=== PATIENT | female | born 1955 | race Two or more races ===

== ENCOUNTER 2025-02-09 21:13 | Emergency (ER) | payer OTHER ==
[~2025-02-09] VITALS: Ht 170.2 cm; Wt 100.0 kg
[2025-02-09] MEDS ORDERED: ACET500T58 PO (22:50)
[2025-02-09] MEDS ORDERED: CYCL-837 PO (22:50)
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
--- NOTE | 2025-02-09 23:55 | DVH ---
CT HEAD WITHOUT CONTRAST INDICATION: headache EXAM DATE: 02/09/2025 11:20 PM COMPARISON: None RADIATION DOSE: CTDIvol: 21.7 mGy, DLP: 1529.03 mGy*cm PROCEDURE: CT scans of the head were obtained from the vertex to the skull base. Sagittal and coronal reconstructions were provided. All CT scans at this medical facility are performed using dose modulation techniques as appropriate t o a performed exam including the following: Automated exposure control was utilized; adjustment of th e MA and/or KV according to patient size; and use of iterative reconstruction technique. FINDINGS: No acute territorial infarct, intracranial hemorrhage, or mass effect. There are global involutional changes with compensatory prominence of the ventricles and sulci. Patchy periventricular and subcorti rossy white matter hypoattenuation is nonspecific but may be related to small vessel ischemic disease. The orbits are normal. The paranasal sinuses and mastoid air cells are clear. The osseous structures are unremarkable. IMPRESSION: 1. No acute territorial infarct, intracranial hemorrhage, or mass effect. If clinical symptoms persis t, MRI may be beneficial in further evaluation. 2. Age-related involutional changes. Chronic microvascular changes.
--- NOTE | 2025-02-09 23:57 | DVH ---
CT OF THE CERVICAL SPINE WITHOUT CONTRAST HISTORY: neck pain COMPARISON: None TECHNIQUE: Helical images through the cervical spine were obtained without contrast. Sagittal and cor onal reformats were obtained. One or more of the following radiation dose reduction techniques were u sed for this examination: automated exposure control, adjustment of the mA and/or kV according to pat ient size, use of iterative reconstruction technique. Dose: CTDI vol: 21.7, DLP: 5029.03 mGy.cm FINDINGS: No acute displaced fracture. There are degenerative changes of the cervical spine characterized by e ndplate osteophytosis and intervertebral disc space narrowing. A disc osteophyte complex at C5-6 effa jama the thecal sac and contributes to at least mild spinal stenosis. There is grade 1 anterolisthesi s of C3 on C4. There is mild retrolisthesis of C5 on C6. Degenerative uncovertebral and facet hypert rophy contribute to mild multilevel neural foraminal narrowing. Paraspinal soft tissues are unremark able. IMPRESSION: 1. No acute displaced fracture. 2. Degenerative changes of the cervical spine as detailed.
--- NOTE | 2025-02-10 00:02 | DVH ---
EXAM: XY R RIB XRAY HISTORY: right rib pain COMPARISON: None TECHNIQUE: Frontal view of the chest and multiple views of the right ribs were performed. FINDINGS/IMPRESSION: The lungs are clear. The cardiomediastinal silhouette is unremarkable. No pleural effusion or pneumo thorax. No acute displaced rib fracture.
[2025-02-10 00:53] VITALS: BP 130/80; PULSE 77; RESP 16; TEMP 99.7; O2SAT 100
[2025-02-10] MEDS: HYDROcodone-ACET 5/325MG TAB PO ONE (00:57)
[2025-02-10] MEDS: ONDANSETRON ODT 4 MG TAB PO ONE (00:57)
== END 2025-02-10 00:58 | disposition home or self-care (01) ==
LOC: EDBD 21:13 → ER 21:13
DX: S16.1XXA Strain of muscle, fascia and tendon at neck level, initial encounter (principal); S20.211A Contusion of right front wall of thorax, initial encounter; R51.9 Headache, unspecified; M79.7 Fibromyalgia; I10 Essential (primary) hypertension; Z90.710 Acquired absence of both cervix and uterus; Z90.49 Acquired absence of other specified parts of digestive tract; Z90.12 Acquired absence of left breast and nipple; Z85.3 Personal history of malignant neoplasm of breast; Z79.899 Other long term (current) drug therapy; V89.2XXA Person injured in unspecified motor-vehicle accident, traffic, initial encounter; Y93.89 Activity, other specified; Y92.488 Other paved roadways as the place of occurrence of the external cause; Y99.8 Other external cause status
CPT/HCPCS: 70450; 71101; 72125; 99284; Q0162

== ENCOUNTER 2025-04-19 17:01 | Emergency (ER) | payer OTHER ==
[~2025-04-19] VITALS: Ht 160 cm; Wt 86.9 kg
[~2025-04-19 17:01] MED LIST: ACET500T58 PO; CYCL-837 PO
[2025-04-19 18:53] LABS: Hematocrit 42.6 % (36.0-46.0); Hemoglobin 14.1 g/dL (12.2-16.2); Mean Corpuscular Hemoglobin 30.1 pg (28.0-32.0); Mean Corpuscular Volume 91.2 fL (80.0-100.0); Nucleated Red Blood Cells % 0.0 %
[2025-04-19 19:09] LABS: Alanine Aminotransferase 29 U/L (7-40); Albumin 4.5 g/dL (3.2-4.8); Anion Gap 11 (5-15); BUN/Creatinine Ratio 12.8 (10.0-20.0); Blood Urea Nitrogen 19 mg/dL (9-23); Calcium 9.6 mg/dL (8.7-10.4); Carbon Dioxide 24 mmol/L (20-31); Chloride 103 mmol/L (98-107); Potassium 4.4 mmol/L (3.5-5.1); Sodium 138 mmol/L (136-145); Total Protein 7.7 g/dL (5.7-8.2)
[2025-04-19 19:10] LABS: Bilirubin, Total 0.6 mg/dL (0.2-1.0)
[2025-04-19 19:11] LABS: Alkaline Phosphatase 120 U/L (46-116); Glucose 148 mg/dL (74-106)
[2025-04-19 19:13] LABS: Lactic Acid w/Reflex 2.5 mmol/L (0.4-2.0)
[2025-04-19 19:22] LABS: Urine Budding Yeast OCCASIONAL /hpf (None Seen); Urine Protein, UAD 1+ (Negative)
--- NOTE | 2025-04-19 19:38 | ED.PDOC ---
General HPI Comments 70 y.o female with PMHx of breast cancer on remission, RA, OA, fibromyalgia and kidney stones, presents to the ED for a chief complaint of left flank pain that has been ongoing the past several days. Patient reports she was seen at the [facility] last night and discharged this morning with pain medication. Prior to this visit, patient was seen for same complaint, had a CT scan done revealing a 7cm kidney stone and was scheduled for a lithotripsy procedure on 05/18/25. Patient states pain worsened this morning, states she has tried taking her pain medications such as Percocet and tramadol at home but causes her to be nauseous and does not alleviate the pain. She also mentions her urine has a tint of blood today with no clots noted. She denies fever, chills, vomiting. Chief Complaint: Abdominal Pain Time Seen by MD: 19:26 Primary Care Provider: UNKNOWN Reviewed notes: Nurses Notes, Medications, Allergies Allergies: Coded Allergies: Cefazolin (Verified Allergy, Unknown, 04/19/25) Zolpidem (Verified Allergy, Unknown, 04/19/25) Home Meds Active Scripts Acetaminophen (Acetaminophen) 500 Mg Tab, 500 MG PO Q4HPRN, #30 TAB 0 Refills Prov:DAVI COX 02/09/25 Cyclobenzaprine Hcl (Cyclobenzaprine Hcl) 5 Mg Tab, 1 TAB PO QHSP, #14 TAB 0 Refills Prov:DAVI COX 02/09/25 Information Source: Patient Mode of Arrival: Ambulatory Severity: Moderate Timing: Days Duration: Since onset Onset: Spontaneous Symptoms: None History of: Kidney stone Location: (L)Flank Modifying factors: None associated signs and symptoms: Nausea, Flank Pain Past Medical History PAST MEDICAL HISTORY: Cancer, HTN Past Medical History (Other): Kidney stones Surgical History: Cholecystectomy, Hysterectomy PLAN MANAGER History: No Pertinent PLAN MANAGER History Family History Family History: Unknown Social History Smoker: Non-Smoker Alcohol: Denies ETOH Use Drugs: Denies Drug Use Lives In: Home Constitutional: denies: chills, diaphoresis, fatigue, fever, malaise, sweats, weakness, others EENTM: denies: blurred vision, double vision, ear bleeding, ear discharge, ear drainage, ear pain, ear ringing, eye pain, eye redness, hearing loss, mouth pain, mouth swelling, nasal discharge, nose bleeding, nose congestion, nose pain, photophobia, tearing, throat pain, throat swelling, voice changes, others Respiratory: denies: cough, hemoptysis, orthopnea, SOB at rest, shortness of breath, SOB with excertion, stridor, wheezing, others Cardiovascular: denies: chest pain, dizzy spells, diaphoresis, Dyspnea on exertion, edema, irregular heart beat, left arm pain, lightheadedness, palpit ations, PND, syncope, others Gastrointestinal: denies: abdomen distended, abdominal pain, blood streaked b owels, constipated, diarrhea, dysphagia, difficulty swallowing, hematemesis, melena, nausea, poor appetite, poor fluid intake, rectal bleeding, rectal pain, vomiting, others Genitourinary: reports: flank pain; denies: abnormal vagina bleeding, burning, dyspareunia, dysuria, frequency, hematuria, incontinence, pain, , vagina discharge, urgency, others Neurological: denies: dizziness, fainting, headache, left sided numbness, left sided weakness, numbness, paresthesia, pre-existing deficit, right sided numbness, right sided weakness, seizure, speech problems, tingling, tremors, weakness, others Musculoskeletal: denies: back pain, gout, joint pain, joint swelling, muscle pain, muscle stiffness, neck pain, others Integumetry: denies: bruises, change in color, change in hair/nails, dryness, laceration, lesions, lumps, rash, wounds, others Allergic/Immunocompromised: denies: Difficulty Healing, Frequent Infections, Hives, Itching, others Endocrine: denies: excessive hunger, excessive sweating, excessive thirst, excessive urination, flushing, intolerance to cold, intolerance to heat, unexplained weight gain, unexplained weight loss, others Psychiatric: denies: anxiety, bipolar disorder, depression, hopeless, panic disorder, schizophrenia, sleepless, suicidal, others Physical Exam General Appearance: Moderate Distress, Obese HEENT: Other (Pupils and face symmetric. Moist mucous membranes.) Neck: Full Range of Motion, Normal Inspection Respiratory: Lungs Clear, No Accessory Muscle Use, No Respiratory Distress, Normal Breath Sounds Cardiovascular: No Edema, No JVD, Regular Rate/Rhythm Breast Exam: Deferred Gastrointestinal: Soft, Tenderness (Left flank and left lower quadrant tend erness to palpation) Genitalia: Deferred Pelvic: Deferred Rectal: Deferred Extremities: Normal inspection, Normal range of motion, Non-tender, No pedal edema Neurologic: Alert (Oriented x4), Normal Affect, Normal Mood, Other (Ambulatory) Cerebellar Function: NOT DONE Reflexes: NOT DONE Skin: Dry, Normal Color, Warm Lymphatic: NOT DONE Was a procedure done? Was a procedure done?: No Differential Diagnosis Kidney stone (Female): DJD, Musculoskeletal pain, Pancreatitis, Pyelonephritis, Renal failure, Urinary obstruction, Urolithiasis X-Ray, Labs, Meds, VS Vital Signs Date Time Temp Pulse Resp B/P (MAP) Pulse Ox O2 Delivery O2 Flow Rate FiO2 04/19/25 23:55 98 Room Air* 0 21 04/19/25 23:46 76 19 134/72 04/19/25 23:45 97.7 73 19 134/72 (92) 97 97.7 04/19/25 17:07 98.2 69 18 115/76 94 98.2 Lab Test 04/19/25 21:17 04/19/25 19:07 04/19/25 18:27 Range/Units Lactic Acid Level 1.8 2.5 *H 0.4-2.0 mmol/L Urine Color Light-orange Yellow Urine Clarity Turbid H Clear Urine pH 6.0 5.0-9.0 Urine Specific [place] 1.026 1.001-1.035 Urine Protein 1+ H Negative Urine Ketones Negative Negative Urine Blood 3+ H Negative /uL Urine Nitrite Negative Negative Urine Bilirubin Negative Negative Urine Urobilinogen Normal Negative mg/dL Urine Leukocyte Esterase Trace Negative /uL Urine RBC 4339 0 - 4 /hpf Urine Microscopic WBC 3 0-5 /HPF Urine Squamous Epithelial Cells Few <5 /hpf Urine Bacteria None seen None Seen /hpf Urine Mucus Few None Seen Urine Yeast (Budding) Occasional None Seen /hpf Urine Glucose Normal Normal mg/dL White Blood Count 10.7 4.4-10.8 10^3/uL Red Blood Count 4.67 4.0-5.20 10^6/uL Hemoglobin 14.1 12.2-16.2 g/dL Hematocrit 42.6 36.0-46.0 % Mean Corpuscular Volume 91.2 80.0-100.0 fL Mean Corpuscular Hemoglobin 30.1 28.0-32.0 pg Mean Corpuscular Hemoglobin Concent 33.0 32.0-36.0 g/dL Red Cell Distribution Width 13.8 11.8-14.3 % Platelet Count 243 140-450 10^3/uL Mean Platelet Volume 8.6 6.9-10.8 fL Neutrophils (%) (Auto) 71.8 37.0-80.0 % Lymphocytes (%) (Auto) 21.1 10.0-50.0 % Monocytes (%) (Auto) 6.4 0.0-12.0 % Eosinophils (%) (Auto) 0.3 0.0-7.0 % Basophils (%) (Auto) 0.4 0.0-2.0 % Neutrophils # (Auto) 7.7 1.6-8.6 10 ^3/uL Lymphocytes # (Auto) 2.3 0.4-5.4 10 ^3/uL Monocytes # (Auto) 0.7 0-1.3 10 ^3/uL Eosinophils # (Auto) 0 0-0.8 10 ^3/uL Basophils # (Auto) 0 0-0.2 10 ^3/uL Nucleated Red Blood Cells 0.0 % Sodium Level 138 136-145 mmol/L Potassium Level 4.4 3.5-5.1 mmol/L Chloride Level 103 98-107 mmol/L Carbon Dioxide Level 24 20-31 mmol/L Anion Gap 11 5-15 Blood Urea Nitrogen 19 9-23 mg/dL Creatinine 1.48 H 0.550-1.02 mg/dL Glomerular Filtration Rate Calc 38 >90 mL/min BUN/Creatinine Ratio 12.8 10.0-20.0 Serum Glucose 148 H 74-106 mg/dL Calcium Level 9.6 8.7-10.4 mg/dL Total Bilirubin 0.6 0.2-1.0 mg/dL Aspartate Amino Transferase (AST) 23 13-40 U/L Alanine Aminotransferase (ALT) 29 7-40 U/L Alkaline Phosphatase 120 H 46-116 U/L Total Protein 7.7 5.7-8.2 g/dL Albumin 4.5 3.2-4.8 g/dL Current Medications Medications (Trade) Dose Ordered Sig/Zayda Route Start Time Stop Time Status Last Admin Morphine Sulfate 4 mg ONCE ONCE IV 04/19/25 18:00 04/19/25 18:02 DC 04/19/25 23:46 Ondansetron HCl (Zofran) 4 mg ONCE ONCE IV 04/19/25 18:00 04/19/25 18:02 DC 04/19/25 23:47 Levofloxacin/ Dextrose 100 ml @ 100 mls/hr ONCE ONCE IV 04/19/25 19:30 04/19/25 20:29 DC 04/19/25 23:47 Sodium Chloride 1,550 ml @ 1,550 mls/hr ONCE ONCE IV 04/19/25 19:30 04/19/25 20:29 DC 04/19/25 23:46 PROCEDURE(s): ABPL - CT AB PEL WO CON-NO ORAL OR IV REASON: L flank pain radiating to LLQ ORDER NUMBER(s): [id number], ACCESSION NUMBER(s): [id number] EXAM: CT CT AB PEL WO CON-NO ORAL OR IV INDICATION: L flank pain radiating to LLQ TECHNIQUE: Volumetric multidetector CT images of the abdomen and pelvis were obtained without contrast. All CT scans at this facility use dose modulation, iterative reconstruction, and/or weight based dosing when appropriate to reduce radiation dose to as low as reasonably achievable. COMPARISON: None FINDINGS: [LOWER CHEST]: The partially visualized lung bases are clear without a pleural effusion. The cardiac size is normal without pericardial effusion. [LIVER]: Normal hepatic size without suspicious focal lesion. [GALLBLADDER AND BILIARY TREE]: Gallbladder is surgically absent. [SPLEEN]: Unremarkable. [PANCREAS]: Unremarkable. [ADRENAL GLANDS]: Unremarkable [KIDNEYS]: Mild left hydronephrosis. 4-5 mm left ureteropelvic junction stone. [BLADDER]: Bladder is decompressed [REPRODUCTIVE ORGANS]: Hysterectomy. [BOWEL/MESENTERY]: Stomach is normal. No CT evidence of bowel obstruction. mild stool burden. [ASCITES]: Absent [LYMPHADENOPATHY]: No pathologically enlarged lymph nodes by CT size criteria [VASCULATURE]: No aneurysmal dilatation. [ABDOMINAL WALL]: Unremarkable. [MUSCULOSKELETAL]: No acute fracture or aggressive focal osseous lesion. Multifocal degenerative change of the visualized spine. IMPRESSION: 1. Mild left hydronephrosis with 4-5 mm left ureteropelvic junction stone. X-Ray, Labs, Meds, VS Comment 70 y.o female with PMHx of breast cancer on remission, RA, OA, fibromyalgia and kidney stones, presents to the ED for a chief complaint of left flank pain that has been ongoing the past several days unresponsive to pain medications at home Vitals unremarkable Exam remarkable for left flank and left lower quadrant tenderness to palpation Rhythm strip independently interpreted by me: Sinus rhythm, rate 69, no ectopy. CT abdomen and pelvis shows a 4-5 mm left UPJ stone with mild hydronephrosis CBC unremarkable, CMP remarkable for creatinine 1.48, UA positive for protein, blood, leukocyte esterase, no bacteria, lactate 2.5, 1.8 on repeat Patient treated with the following in the ED: 30 cc/kilogram normal saline IV bolus, morphine 4 mg IV, Zofran 4 mg IV, Levaquin 500 mg IV, magnesium rider 2 g IV, Dilaudid 0.5 mg IV On re-evaluation, patient states pain has somewhat improved but is still pres ent. Vitals were stable. Plan is to transfer the patient to [facility] for ongoing pain management and Urology evaluation. Case discussed with [facility] physician, who will arrange for the patient to be transferred. Authorization [id number] Time of 1ST Reevaluation: 20:00 Reevaluation 1ST: Unchanged Patient Education/Counseling: Diagnosis, Treatment, Prognosis Family Education/Counseling: No Family Present SEPSIS Sepsis Screen Date sepsis recognized/suspect: Apr 19, 2025 Time Sepsis recognized/suspect: 1706 Recent Procedure: No On Antibiotic Therapy: No Respiratory Rate >20: No Heart Rate >90: No Temp<36 C (96.8 F) or >38.3 C: No SBP <90 or MAP <65 mmHG: No New Acute Mental Status Change: No Is the patient on CPAP, BIPAP,: No Physician Orders Ct Ab Pel Wo Con-No Oral Or Iv (04/19/25 19:30) Vital Signs Date Time Temp Pulse Resp B/P (MAP) Pulse Ox O2 Delivery O2 Flow Rate FiO2 04/19/25 23:55 98 Room Air* 0 21 04/19/25 23:46 76 19 134/72 04/19/25 23:45 97.7 73 19 134/72 (92) 97 97.7 04/19/25 17:07 98.2 69 18 115/76 94 98.2 Laboratory Tests Test 04/19/25 18:27 04/19/25 21:17 Lactic Acid Level 2.5 mmol/L (0.4-2.0) *H 1.8 mmol/L (0.4-2.0) White Blood Count 10.7 10^3/uL (4.4-10.8) Medications Medications Dose Ordered Sig/Zayda Route Start Time Stop Time Status Last Admin Dose Admin Levofloxacin/ Dextrose 100 ml @ 100 mls/hr ONCE ONCE IV 04/19/25 19:30 04/19/25 20:29 DC 04/19/25 23:47 Morphine Sulfate 4 mg ONCE ONCE IV 04/19/25 18:00 04/19/25 18:02 DC 04/19/25 23:46 Ondansetron HCl 4 mg ONCE ONCE IV 04/19/25 18:00 04/19/25 18:02 DC 04/19/25 23:47 Sodium Chloride 1,550 ml @ 1,550 mls/hr ONCE ONCE IV 04/19/25 19:30 04/19/25 20:29 DC 04/19/25 23:46 Departure 1 Departure Time of Disposition: 00:00 Impression: Primary Impression: Hydronephrosis concurrent with and due to calculi of kidney and ureter Additional Impression: Intractable pain Disposition: 02 SHORT TERM HOSPITAL Admit to: Med Surg Condition: Guarded Critical Care Note Critical Care Time?: No Stability Stability form required: No I personally scribed for AISHA MCDOWELL MD ([email or web address]) on 04/19/25 at 19:38. Electronically submitted by Eloina Mccoy ([facility]). AISHA MCDOWELL MD Apr 19, 2025 19:38
--- NOTE | 2025-04-19 20:25 | DVH ---
EXAM: CT CT AB PEL WO CON-NO ORAL OR IV INDICATION: L flank pain radiating to LLQ TECHNIQUE: Volumetric multidetector CT images of the abdomen and pelvis were obtained without contras t. All CT scans at this facility use dose modulation, iterative reconstruction, and/or weight based d osing when appropriate to reduce radiation dose to as low as reasonably achievable. COMPARISON: None FINDINGS: [LOWER CHEST]: The partially visualized lung bases are clear without a pleural effusion. The cardiac size is normal without pericardial effusion. [LIVER]: Normal hepatic size without suspicious focal lesion. [GALLBLADDER AND BILIARY TREE]: Gallbladder is surgically absent. [SPLEEN]: Unremarkable. [PANCREAS]: Unremarkable. [ADRENAL GLANDS]: Unremarkable [KIDNEYS]: Mild left hydronephrosis. 4-5 mm left ureteropelvic junction stone. [BLADDER]: Bladder is decompressed [REPRODUCTIVE ORGANS]: Hysterectomy. [BOWEL/MESENTERY]: Stomach is normal. No CT evidence of bowel obstruction. mild stool burden. [ASCITES]: Absent [LYMPHADENOPATHY]: No pathologically enlarged lymph nodes by CT size criteria [VASCULATURE]: No aneurysmal dilatation. [ABDOMINAL WALL]: Unremarkable. [MUSCULOSKELETAL]: No acute fracture or aggressive focal osseous lesion. Multifocal degenerative mckeon ge of the visualized spine. IMPRESSION: 1. Mild left hydronephrosis with 4-5 mm left ureteropelvic junction stone.
[2025-04-19] MEDS: SODIUM CHLORIDE 0.9% 1,550 ML IV ONE (23:46)
[2025-04-19] MEDS: MORPHINE SULFATE 4 MG/ML SYR/VIAL IV ONE (23:46)
[2025-04-19] MEDS: ONDANSETRON HCL 4 MG/2 ML VIAL IV ONE (23:47)
[2025-04-19] MEDS: ONDANSETRON HCL 4 MG/2 ML VIAL ONE (23:50)
[2025-04-19] MEDS: MORPHINE SULFATE 4 MG/ML SYR/VIAL ONE (23:51)
[2025-04-19 23:55] VITALS: O2SAT 98
[2025-04-20] MEDS: HYDROmorphone HCL 2 MG/ML VL/or syr IV ONE (02:42)
[2025-04-20 02:50] VITALS: BP 139/71; PULSE 69; RESP 14; TEMP 97.8; O2SAT 100
[2025-04-20] MEDS: MAGNESIUM SULFATE 1GM/100ML 100 ML IV SCH (02:56)
== END 2025-04-20 00:35 | disposition short-term general hospital (02) ==
LOC: ER 17:01
DX: N13.2 Hydronephrosis with renal and ureteral calculous obstruction (principal); R10.9 Unspecified abdominal pain; I10 Essential (primary) hypertension; Z79.899 Other long term (current) drug therapy; Z90.49 Acquired absence of other specified parts of digestive tract; Z90.710 Acquired absence of both cervix and uterus; Z88.1 Allergy status to other antibiotic agents
CPT/HCPCS: 36415; 74176; 80053; 81001; 83605; 85025; 96365; 96375; 99285; J1956; J2270; J2405